=== PATIENT | female | born 1985 | race Caucasian/White ===

== ENCOUNTER 2016-09-13 16:54 | Emergency (ER) | payer OTHER ==
[~2016-09-13] VITALS: Ht 149.9 cm; Wt 59.1 kg
[~2016-09-13 16:54] MED LIST: SERT100T PO; SULF1TAB7 PO
[2016-09-13 17:02] VITALS: BP 130/67; PULSE 70; RESP 16; O2SAT 98
--- NOTE | 2016-09-13 19:32 | ED.REPORT ---
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 She reports pain in her 2 front teeth that radiates up into her cheek bones, aggravated by chewing crunchy foods. She states it is been present for one week. Admits to history of rhinorrhea, congestion, cough, sore throat, headache, ear fullness. Denies fever, chills, sweats, vomiting, abdominal pain. She is seen by her dentist today, who did not place her on antibiotics. Nursing Notes Stated Complaint: TOOTH ABSCESS Chief Complaint: Dental Nursing Notes Reviewed: Yes Allergies: Coded Allergies: No Known Allergies (Verified , 09/13/16) Scheduled Amoxicillin/Clav K 875-125 mg (Amoxicillin/Clav K 875-125 mg) 875 Mg Tab 1 TABLET PO BID Sertraline HCl (Zoloft) 100 Mg Tablet 100 MG PO DAILY Sulfamethoxazole/Trimeth 800-160 mg (Bactrim DS) 1 Each Tablet 1 TABLET PO BID General Time Seen by MD: 17:16 Chief Complaint Tooth pain Past Medical History Past Medical History Intramuscular drug abuse Past Surgical History denies Family History Noncontributory Smoking History Current Every Day Smoker Social History Alcohol Use: "Social" Drug Use: IV drugs Other Social History: Lives with children, Local resident Ambulatory Status Independent Review of Systems Negative unless stated otherwise in history of present illness Physical Exam General: Well appearing, well developed, well nourished, no acute distress. Head: Atraumatic, normocephalic. No mastoid tenderness. Eyes: No scleral icterus or injection. No discharge. PERRL. Vision grossly intact. Ears: Pinna and tragus nontender with manipulation. External auditory canal patent, atraumatic and without discharge. Tympanic membrane cordero, shiny and translucent without fluid, bulging, retraction or perforation. Hearing grossly intact. Nose: Moderate left maxillary sinus tenderness. Symmetrical, nares patent without discharge. Mouth/pharynx: Her front teeth deeply stained and tender to percussion. No obvious fractures. No redness, swelling or discharge noted. Mucus membranes moist. Tonsils 2+ and symmetrical, uvula midline. Pharynx noninjected, no cobblestoning or discharge. Voice clear. Neck: No tenderness or lymphadenopathy. Trachea midline. Respiratory: Regular rate and rhythm. Breath sounds present, clear to auscultation and equal bilaterally. No respiratory distress. No increased work of breathing, speaks in complete sentences. Cardiovascular: Regular rate and rhythm, without murmur, gallop or rub. No pedal edema. Skin: Warm and dry. Neurological: Grossly nonfocal. Psychological: Alert and oriented. Speech appropriate, linear and logical. Behavior appropriate. Initial Vital Signs Vital Signs (First) Date Time Temp Pulse Resp B/P Pulse Ox O2 Delivery O2 Flow Rate FiO2 09/13/16 17:02 36.3 70 16 130/67 98 Room Air Initial VS: Reviewed, Vital signs normal Re-Eval/Medical Decision Med Decision/Clinical Course 31-year-old female in recovery for opiate abuse but without other comorbidities presents with chief complaint of tooth pain. She reports pain in her cheek and above her front teeth. Aggravated by chewing. Denies systemic symptoms. Admits to upper respiratory symptoms. She was seen by a dentist today, who withheld antibiotics. Physical examination does not reveal an obvious infection, fracture or abscess. She does have moderate left maxillary sinus tenderness. Physical exam is otherwise benign. Think that there is a possibility that this is sinus infection with pain radiating to the teeth. I do not think it is unreasonable to treat for this, which may help with her tooth pain. I also advised saline rinses as well as Flonase to facilitate drainage. I also advised [id number] analgesia. Discussed possibly performing a dental block, but this was deferred according to the patient's wishes. Provided primary care follow-up referral and emergency return precautions. Patient understands and agrees with the plan. Discharge & Departure Primary Impression: Sinusitis Sinusitis location: maxillary Chronicity: acute Recurrence: non-recurrent Qualified Code: J01.00 - Acute maxillary sinusitis, unspecified Disposition: Home Discharge Condition All VS Reviewed: Yes Condition: Stable Patient Instructions: Sinusitis (ED) Additional Instructions: Evaluation for tooth pain in the emergency department. Do not see any obvious dental infection although your teeth definitely need attention. Also do not see an abscess drainage. There is a bit of sinus tenderness in her cheek that makes me feel this is more likely to be a sinus infection, especially considering your history of an upper respiratory infection. We will treat this with an antibiotic to be taken with food twice a day for 7 days. I will give you your first dose here in the emergency department as well as prescription for the remainder. The pain is best treated with 400 mg of ibuprofen (Advil, Motrin) every 6 hours , or 1000 mg of acetaminophen (Tylenol) every 6 hours. These drugs can be taken at the same time for more severe pain. Contact your primary care physician if your symptoms have not resolved in about a week. I will provide you with a referral. Return to the emergency department for any new or worsening symptoms including increasing pain, fever, chills, sweats or pain and swelling in your eye. Referrals: Ron Ramírez MD EDSupervising Provider for APC: Desean Robles DO copies to: Ron Ramírez MD, Seth PA-C Sep 13, 2016 19:31
[2016-09-13] MEDS ORDERED: Amoxicillin-Clav 875-125 mg Tablet PO ONE (19:35)
[2016-09-13] MEDS ORDERED: AMOX-366 PO (19:44)
[2016-09-13] MEDS ORDERED: AGM875T PO (19:45)
[2016-09-13 19:53] VITALS: PULSE 79; RESP 18; O2SAT 100
== END 2016-09-13 19:53 | disposition home or self-care (01) ==
LOC: SED 16:54
DX: J01.00 Acute maxillary sinusitis, unspecified (principal); K08.89 Other specified disorders of teeth and supporting structures; F17.200 Nicotine dependence, unspecified, uncomplicated

== ENCOUNTER 2016-10-28 12:23 | Emergency (ER) | payer OTHER ==
[~2016-10-28] VITALS: Ht 147.3 cm; Wt 61.4 kg
[~2016-10-28 12:23] MED LIST changes: +AGM875T PO
[2016-10-28 12:25] VITALS: BP 100/64; PULSE 91; RESP 15
--- NOTE | 2016-10-28 12:35 | ED.REPORT ---
HPI-Preg Under 20 Weeks Date of Service Oct 28, 2016 ED Provider: Ron Cannon MD 31 year old female who is A1 presents to the ER complaining of three days of intermittent cramping abdominal pain. Today her symptoms persisted for longer than 2 hours, which is the reason for her visit to the emergency room. She found out that she was the day of symptom onset, and is concerned because she has not experienced similar symptoms with prior pregnancies. Associated symptom of nausea. Patient denies vaginal bleeding, dysuria and vomiting. Nursing Notes Stated Complaint: CRAMPING/ Chief Complaint: & Delivery Nursing Notes Reviewed: Yes Allergies: Coded Allergies: No Known Allergies (Verified , 10/28/16) Scheduled Amoxicillin/Clav K 875-125 mg (Amoxicillin/Clav K 875-125 mg) 875 Mg Tab 1 TABLET PO BID Cephalexin (Keflex) 500 Mg Capsule 500 MG PO QID Sertraline HCl (Zoloft) 100 Mg Tablet 100 MG PO DAILY Sulfamethoxazole/Trimeth 800-160 mg (Bactrim DS) 1 Each Tablet 1 TABLET PO BID General Time Seen by Provider: 12:30 Chief Complaint Abdominal cramping Hx Obtained From: Patient Arrived By: Walk-in Onset Occurred: 3 days ago Symptom Duration: Intermittent Associated with: Reports: Nausea, Denies: Dysuria, Vomiting Similar Sx Previous: No Past Medical History Past Medical History Intramuscular drug abuse Past Surgical History denies Family History Noncontributory Smoking History Current Every Day Smoker Social History Alcohol Use: "Social" Drug Use: IV drugs Other Social History: Lives with children, Local resident Ambulatory Status Independent Review of Systems Constitutional: Denies: Fever GI: Reports: Abdominal pain, Nausea, Denies: Constipation, Diarrhea, Vomiting Female: Reports: Pelvic pain, , Denies: Dysuria, Vaginal bleeding - abnl, Vaginal discharge Complete sys rev & neg: except as marked. Physical Exam Initial Vital Signs Vital Signs (First) Date Time Temp Pulse Resp B/P Pulse Ox O2 Delivery O2 Flow Rate FiO2 10/28/16 12:25 36.8 91 15 100/64 10/28/16 14:59 97 Room Air Initial VS: Reviewed Head / Eyes: Atraumatic, Normocephalic Neck: Supple, Non-tender, Full range of motion Respiratory: Breath sounds normal, Clear to auscultation, No respiratory distress Cardiovascular: Regular rate & rhythm, Heart sounds normal, Intact distal pulses Extremities: Vascular intact, Neuro intact, No swelling, No tenderness Skin: Warm, Dry, No cyanosis Neurologic: Alert, Oriented, Nonfocal General/Constitutional: Awake, Alert, Well developed, Well nourished Abdomen: Soft, No guarding, No rebound Tenderness/Guarding/Rebound: Positive: Tender suprapubic (Mild) Interpretation & Diagnostics Lab Results Interpretation Result Diagram: 10/28/16 1346 10/28/16 1346 Test 10/28/16 12:46 10/28/16 13:46 Urine Color Straw (YELLOW) Urine Appearance Hazy (CLEAR,HAZY) Urine pH 7.5 (5.0-8.0) Urine Specific [place] 1.015 (1.003-1.035) Urine Protein Negativemg/dL (NEG,TRACE) Urine Glucose (UA) Negativemg/dL (NEGATIVE) Urine Ketones Negativemg/dL (NEGATIVE) Urine Occult Blood Negative (NEGATIVE) Urine Nitrite Negative (NEGATIVE) Urine Bilirubin Negative (NEGATIVE) Urine Urobilinogen Normalmg/dL (NORMAL) Urine Leukocyte Esterase Moderate (NEGATIVE) Urine RBC 0-2/hpf (0-2) Urine WBC 0-5/hpf (0-5) Urine Epithelial Cells Occasional/hpf (NONE-MOD) Urine Crystals None seen (NONE SEEN) Urine Bacteria Moderate/hpf (NONE-FEW) Urine Hyaline Casts None/lpf (NONE) Urine Granular Casts None seen (NONE SEEN) Urine Waxy Casts None seen (NONE SEEN) Urine Red Blood Cell Casts None seen (NONE SEEN) Urine White Blood Cell Casts None seen (NONE SEEN) Urine Mucus None seen (None Seen) Urine Trichomonas None seen (NONE SEEN) Urine Yeast None (NONE SEEN) Urinalysis Comment None Urine Culture Reflexed Indicated Hold Urine Received (Received) White Blood Count 7.5th/mm3 (3.8-10.1) Red Blood Count 4.56mil/mm3 (3.90-5.20) Hemoglobin 12.2g/dL (12.0-15.6) Hematocrit 36.4% (35.0-46.0) Mean Corpuscular Volume 79.8fL (81-100) Mean Corpuscular Hemoglobin 26.8pg (27.0-35.0) Mean Corpuscular Hemoglobin Concent 33.5% (32.0-37.0) Red Cell Distribution Width 14.7% (12.3-15.4) Platelet Count 232bil/L (150-400) Sodium Level 136mEq/L (134-144) Potassium Level 4.4mEq/L (3.5-5.2) Chloride Level 100mEq/L (97-108) Carbon Dioxide Level 21mmol/L (18-29) Blood Urea Nitrogen 12mg/dL (6-20) Creatinine 0.74mg/dL (0.57-1.00) Estimat Glomerular Filtration Rate 130mL/min (>59) Glucose Level 97mg/dL (60-99) Calcium Level 9.5mg/dL (8.5-10.1) Total Bilirubin 0.2mg/dL (0.0-1.2) Aspartate Amino Transf (AST/SGOT) 22U/L (0-50) Alanine Aminotransferase (ALT/SGPT) 29U/L (0-32) Alkaline Phosphatase 32U/L (25-150) Total Protein 7.3g/dL (6.4-8.4) Albumin 4.6g/dL (3.4-5.0) HCG Beta Subunit [id number]/mL Hold Cross Top Tube Received (Received) Re-Eval/Medical Decision Med Decision/Clinical Course 31-year-old female presenting with abdominal cramping and concerned for . No vaginal bleeding. Urine is positive. Transvaginal ultrasound shows intrauterine of 5 weeks. Patient has suspicion for UTI on urine. She will be treated for UTI with plans to follow-up with [facility] [employer]. vitamins. Re-Evaluation/Progress : Time of Eval: 14:42 Re-Evaluation/Progress Note: Discussed lab results and plan to discharge. Patient is amenable to the plan. Return precautions given. All other questions addressed. Counseled Regarding: Diagnosis, Lab results, Need for follow-up, When/why to return to ED Discharge & Departure Primary Impression: Intrauterine Additional Impression: UTI (urinary tract infection) Disposition: Home Discharge Condition All VS Reviewed: Yes Condition: Stable Patient Instructions: Urinary Tract Infection in Women (DC) Additional Instructions: Your workup today was reassuring. I do not believe that there is any dangerous cause for your symptoms at this time. I believe that your pain could be due to a urinary tract infection. Take Keflex as prescribed. It is important that you complete the entire course of this antibiotic medication. Call your OBGYN to arrange a follow-up appointment in 1-2 days. Return to the ER if you develop worsening pain, back pain, fever, chills, nausea , vomiting, vaginal bleeding/discharge, blood in your urine, or any other concerning symptoms. Referrals: NOPCP (PCP) Sylvia Gonzales MD Attestation Portions of this note were transcribed by Kristopher Laureano. I, Dr. Cannon, personally performed the history, physical exam and medical decision-making; I reviewed and confirmed the accuracy of the information in the transcribed note. Signed by: Lopez Sebastian, 10/28/2016 at 14:46 copies to: Sylvia Gonzales MD, Ben M MD Oct 28, 2016 12:35 KRISTOPHER LAUREANO Oct 28, 2016 12:55
[2016-10-28 13:17] LABS: APPEARANCE,URINE HAZY (CLEAR,HAZY); COLOR,URINE STRAW (YELLOW); OCCULT BLOOD,URINE NEGATIVE (NEGATIVE); PH,URINE 7.5 (5.0-8.0); UROBILINOGEN,URINE NORMAL (NORMAL)
[2016-10-28 13:53] LABS: Mean Corpuscular Hemoglobin 26.8 pg (27.0-35.0); Mean Corpuscular Volume 79.8 fL (81-100)
[2016-10-28] MEDS ORDERED: CEPH-512 PO (14:44)
[2016-10-28 14:59] VITALS: BP 94/60; PULSE 79; RESP 16; O2SAT 97
[2016-10-28 15:01] VITALS: BP 94/60; PULSE 79; RESP 16; O2SAT 97
--- NOTE | 2016-10-28 15:35 | DRSVH ---
PROCEDURE: US OB<14 WKS+OB TRANSVAG INDICATIONS: , pelvic pain, no bleeding, hcg pending OUTSIDE/PRIOR DATING DATA: Last menstrual period (LMP): Not available. LMP-based estimated date of delivery (CELIA): Not available. First dating scan (date and location): 10/28/2016 at [facility]. Estimated date of delivery (CELIA) from first dating scan: 06/24/2017. TECHNIQUE: Real-time scanning was performed of the fetus and maternal pelvic organs, with image documentation. Endovaginal scanning was also performed to better visualize the fetus and maternal ovaries. COMPARISON: None. FINDINGS: Embryo: There is a single living IUP. cardiac activity was present. OB-BLOCK CABLEMAN Ultrasound Procedure Report Early Gestation [employer] Mean Gestational Sac Diameter: - Gestational Age (MGSD): - Merrill Rump Length: 2.50 mm Gestational Age (CRL): 5 weeks, 6 days Summary Fetus Summary Heart Rate: 96 bpm Comments: A normal yolk sac is noted. No perigestational bleeds. Measurement variability in dating: +/- 4 weeks by LMP, +/- 7 days by mean sac diameter (use before 6 weeks gestation if crown-rump length not able to be measured), +/- 5 days by crown-rump length (6-12 weeks gestation). Maternal organs: Right ovary is normal. Left ovary contains a thickwalled cyst measuring 2.1 cm, prob ably corpus luteal cyst. Limited images through the kidneys demonstrate no hydronephrosis. IMPRESSION: 1. A single living IUP with the estimated gestational age 5 weeks and 6 days. Ultrasound CELIA 06/27/20 17. 2. A corpus pseudocyst in the left ovary. Dictated by: Enrique Fontenot M.D. on 10/28/2016 at 15:30 Approved by: Enrique Fontenot M.D. on 10/28/2016 at 15:33
== END 2016-10-28 14:46 | disposition home or self-care (01) ==
LOC: SED 12:23
DX: O23.41 Unspecified infection of urinary tract in pregnancy, first trimester (principal); O99.331 Smoking (tobacco) complicating pregnancy, first trimester; Z3A.01 Less than 8 weeks gestation of pregnancy